=== PATIENT | female | born 1965 | race Caucasian/White ===

== ENCOUNTER 2017-08-23 18:00 | Emergency (ER) | payer OTHER ==
[2017-08-23] MEDS: HYDROmorphONE 2 MG/ML SYG IM (18:36)
[2017-08-23] MEDS: ONDANSETRON (ODT) 4 MG TAB ODT (18:37)
[2017-08-23] MEDS: PROPOFOL 200 MG INJ IV (19:34)
== END 2017-08-23 21:52 | disposition home or self-care (01) ==
LOC: E/R 18:00
DX: S43.004A Unspecified dislocation of right shoulder joint, initial encounter (principal); X58.XXXA Exposure to other specified factors, initial encounter; Y92.9 Unspecified place or not applicable
CPT/HCPCS: 23650; 73030-RT; 94770; 96372; 99285-25